=== PATIENT | male | born 1950 | race Two or more races ===

== ENCOUNTER → 2018-07-23 | Outpatient (CLI) | payer OTHER ==
[~2018-07-23] MED LIST: CHOL100013 PO; GADOBUTROL 7.5 MMOL/7.5 ML VIAL IV ONE; LISI-334 PO; TAMS0.4C2 PO
--- NOTE | 2018-07-23 15:42 | KCIC ---
MRI of the Brain without and with Contrast 07/23/2018 Clinical History: Intermittent headaches and lightheadedness for several weeks. Hypertension. Technique: Unenhanced T1-weighted sagittal and axial and FLAIR, T2-weighted, gradient echo and diffusion-weighted axial images of the brain were obtained. After the intravenous administration of 7.5 cc of Gadavist, enhanced T1-weighted axial, sagittal and coronal images of the brain were obtained. Findings: No previous studies are available for comparison. There is mild generalized parenchymal atrophy. Patchy and multiple small focal areas of abnormally increased signal intensity are seen within the periventricular and subcortical white matter of both cerebral hemispheres on the FLAIR and T2-weighted images consistent most likely with areas of small vessel ischemic disease. No acute parenchymal abnormality is seen. No abnormal area of contrast enhancement is noted. No extra-axial fluid collection is seen. There is no MRI evidence of acute ischemia/infarction. Mild to moderate mucosal thickening is seen scattered throughout the paranasal sinuses. Normal flow voids are seen within the major vascular structures surrounding the brain parenchyma. Impression: No acute parenchymal abnormality is seen. Electronically signed by: Jaya Wright MD (07/23/2018 3:38 PM) [id number]
== END | disposition home or self-care (01) ==
LOC: KCIC MRI 12:47
PROVIDERS: ATTEND Internal Medicine
DX: R51 Headache (principal); J34.89 Other specified disorders of nose and nasal sinuses
CPT/HCPCS: 70553; A9585